=== PATIENT | female | born 1980 | race Hispanic/Latino ===

== ENCOUNTER 2018-08-29 22:14 | Emergency (ER) | payer OTHER ==
[2018-08-29 22:19] VITALS: TEMP 98.5; O2SAT 100
[2018-08-29] MEDS ORDERED: Sodium Chloride 0.9% 1,000 ML IV SCH (22:45)
[2018-08-29] MEDS ORDERED: Sodium Chloride 0.9% 1,000 ML IV STA (22:49)
--- NOTE | 2018-08-29 22:54 | ED PDOC ---
HPI: Abdomen Time Seen by Provider: 08/29/18 22:30 Chief Complaint (Nursing): GI Problem Chief Complaint (Provider): N/V and diarrhea History Per: Patient History/Exam Limitations: no limitations Onset/Duration Of Symptoms: Hrs Outside of [place] travel?: No Current Symptoms Are (Timing): Still Present Context: Food Additional Complaint(s): 38 y/o breast feeding Female with hx of Crohn's disease and low blood pressure who presents with N/V and diarrhea for the past 5hrs. Patient states that she and her both have food poisoning after eating frozen chicken placed into chicken soup. She has vomited about 8 times since 5:30pm and has diarrhea. Now only retching and feeling like she's choking. Denies HTN, HL, CAD/SC, asthma. No travel outside of [place] recently. Her is also sick but has more mild symptoms. Past Medical History Reviewed: Historical Data, Nursing Documentation, Vital Signs Vital Signs: Last Vital Signs Temp 98.5 F 08/29/18 22:15 Pulse 75 08/29/18 22:15 Resp 16 08/29/18 22:15 BP 87/42 L 08/29/18 22:15 Pulse Ox 100 08/29/18 22:15 - Medical History PMH: Crohn's Disease - Family History Family History: States: Unknown Family Hx - Living Arrangements Living Arrangements: With Family - Social History Current smoker - smoking cessation education provided: No Ex-Smoker (has not smoked in the last 12 months): No Alcohol: None Drugs: Denies - Home Medications Home Medications: Ambulatory Orders Medication Instructions Recorded Metoclopramide [Reglan] 10 mg PO QID PRN 3 Days tab 08/30/18 - Allergies Allergies/Adverse Reactions: Allergies Allergy/AdvReac Type Severity Reaction Status Date / Time No Known Allergies Allergy Verified 08/29/18 22:20 Review of Systems ROS Statement: Except As Marked, All Systems Reviewed And Found Negative Constitutional: Negative for: Fever Cardiovascular: Negative for: Chest Pain, Palpitations Gastrointestinal: Positive for: Nausea, Vomiting, Abdominal Pain, Diarrhea. Negative for: Melena, Hematochezia, Hematemesis Physical Exam - Reviewed Nursing Documentation Reviewed: Yes Vital Signs Reviewed: Yes - Physical Exam Appears: Positive for: Uncomfortable Head Exam: Positive for: ATRAUMATIC Skin: Positive for: Pallor Eye Exam: Positive for: Normal appearance Neck: Positive for: Normal Cardiovascular/Chest: Positive for: Regular Rate, Rhythm Respiratory: Positive for: Normal Breath Sounds Gastrointestinal/Abdominal: Positive for: Bowel Sounds (hyperactive), Soft, Tend erness (RUQ tenderness) Back: Positive for: Normal Inspection Neurologic/Psych: Positive for: Alert, Oriented, Mood/Affect (appropriate) - Laboratory Results Result Diagrams: 08/29/18 23:02 08/29/18 23:02 - ECG O2 Sat by Pulse Oximetry: 100 Medical Decision Making Medical Decision MakinL NS bolus CBC, CMP urine preg Reglan 12:45am: Re-evaluation; feeling better, desiring to go home. Stable for discharge. Return instructions given. Disposition - Clinical Impression Clinical Impression: Food poisoning - Patient ED Disposition Is Patient to be Admitted: No Counseled Patient/Family Regarding: Studies Performed, Diagnosis, Need For Followup - Disposition Disposition: Routine/Home Disposition Time: 01:23 Condition: STABLE Additional Instructions: Stay hydrated, get some rest. Return to ER if you start vomiting and diarrhea and are unable to keep anything down. F/u with your primary care doctor as needed. Prescriptions: Metoclopramide [Reglan] 10 mg PO QID PRN 3 Days tab PRN Reason: Nausea/Vomiting Instructions: Food Poisoning (DC) Forms: [employer] ([place]e) Print Language: [place]RA[place]I
[2018-08-29 23:14] LABS: BASO % 0.1 % (0.0-2.0); EOS % 0.2 % (0.0-4.0); HEMOGLOBIN 13.6 g/dL (12.0-16.0); LYMPH # 0.3 K/uL (1.0-4.3); LYMPH % 1.7 % (20.0-40.0); MEAN CELL VOLUME 88.7 fl (81.0-99.0); MEAN CORPUSCULAR HEMOGLOBIN 28.9 pg (27.0-31.0); MEAN CORPUSCULAR HGB CONC 32.6 g/dL (33.0-37.0); MONO # 0.4 K/uL (0.0-0.8); MONO % 2.7 % (0.0-10.0); NEUT # 14.4 K/uL (1.8-7.0); NEUT % 95.3 % (50.0-75.0); PLATELET COUNT 304 K/uL (130-400); RBC 4.69 Mil/uL (3.80-5.20); RED CELL DISTRIBUTION WIDTH 12.6 % (11.5-14.5); WHITE BLOOD COUNT 15.1 K/uL (4.8-10.8)
[2018-08-29 23:18] LABS: ALB/GLOB RATIO 1.4 (1.0-2.1); ALBUMIN 4.8 g/dL (3.5-5.0); ALT/SGPT 31 U/L (9-52); AST/SGOT 24 U/L (14-36); BLOOD UREA NITROGEN 21 mg/dl (7-17); CALCIUM 9.7 mg/dL (8.4-10.2); GFR NON-AFRICAN AMERICAN > 60
[2018-08-30 00:49] LABS: EOSINOPHIL 1 % (0-7); LYMPHOCYTE 5 % (20-50); MONOCYTE 2 % (0-10); NEUTROPHIL 92 % (42-75); TOTAL CELLS COUNTED 100
[2018-08-30 00:50] LABS: PLATELET ESTIMATE NORMAL (NORMAL)
[2018-08-30 00:51] LABS: ANISOCYTOSIS SLIGHT; HELMET CELLS SLIGHT; POIKILOCYTOSIS SLIGHT; TEARDROP CELLS SLIGHT
[2018-08-30 01:03] VITALS: BP 110/60; PULSE 83; RESP 24
== END 2018-08-30 01:21 | disposition home or self-care (01) ==
LOC: H.ER 22:14
DX: A05.9 Bacterial foodborne intoxication, unspecified (principal); K50.90 Crohn's disease, unspecified, without complications; K50.00 Crohn's disease of small intestine without complications; Z79.899 Other long term (current) drug therapy
CPT/HCPCS: 80053; 81025; 85025; 96360; 99284; J2765; J7030